=== PATIENT | female | born 1975 | race Caucasian/White ===

== ENCOUNTER 2017-09-23 22:26 | Emergency (ER) | payer MEDICARE, MEDICAID ==
[2017-09-23] MEDS ORDERED: ONDANSETRON HCL IV 4 MG/2 ML VIAL IVP ONE (22:39)
[2017-09-23] MEDS ORDERED: MORPHINE SULFATE 5 MG/ML PFS IVP ONE (22:39)
--- NOTE | 2017-09-23 22:44 | Emergency Department Record ---
History of Present Illness - General Chief Complaint: Abdominal Pain Stated Complaint: ADOMINAL PAIN,CHRONES FLARE UP Time Seen by Provider: 09/23/17 22:33 Source: Patient Mode of Arrival: Ambulatory Limitations: No limitations - History of Present Illness Initial Comments: 41 yo female presents to ED for evaluation of "an exacerbation of my crohn's" disease that worsened today. Patient denies fevers, chills, or recent illness. Patient denies nausea, vomiting, or change in stools. Patient reports that she has pain every day from her crohn's but has not seen a GI specialist in some time. Patient reports taking cholecystyramine and medication for GERD routinely. MD Complaint: Abdominal pain Onset/Timin -: Days(s) Location: Diffuse Radiation: None Migration to: No migration Severity: Severe Quality: Cramping Consistency: Constant Improves With: Nothing Worsens With: Nothing Associated Symptoms: Denies other symptoms - Related Data Patient : No Previous Rx's Medication Instructions Recorded Omeprazole [Prilosec] 40 mg PO DAILY #30 capsule. 11/05/14 Allergies Allergy/AdvReac Type Severity Reaction Status Date / Time Penicillins Allergy Unknown HIVES Unverified 08/12/17 08:24 prochlorperazine edisylate Allergy SWELLING Unverified 08/12/17 08:24 [From Compazine] OF THE TONGUE prochlorperazine maleate Allergy SWELLING Unverified 08/12/17 08:24 [From Compazine] OF THE TONGUE sulfamethoxazole Allergy SWELLING Unverified 08/12/17 08:24 [From Bactrim] OF THE TONGUE trimethoprim [From Bactrim] Allergy SWELLING Unverified 08/12/17 08:24 OF THE TONGUE Review of Systems Constitutional: Denies: Chills, Fever, Malaise, Night sweats Eyes: Denies: Eye discharge, Eye pain ENT: Denies: Congestion, Ear pain, Epistaxis Respiratory: Denies: Cough, Dyspnea Cardiovascular: Denies: Chest pain, Dyspnea on exertion Endocrine: Denies: Fatigue, Heat or cold intolerance Gastrointestinal: Reports: Abdominal pain. Denies: Constipation, Diarrhea, Hematochezia, Nausea, Vomiting Genitourinary: Denies: Incontinence, Retention Musculoskeletal: Denies: Arthralgia, Back pain, Gout, Joint swelling Skin: Denies: Bruising, Change in color Neurological: Denies: Abnormal gait, Confusion, Headache, Seizure Psychiatric: Denies: Anxiety Hematological/Lymphatic: Denies: Anemia, Blood Clots Past Medical History - SOCIAL HISTORY Smoking Status: Current some day smoker - RESPIRATORY Hx Respiratory Disorders: Yes Hx Asthma: Yes - CARDIOVASCULAR Hx Cardio Disorders: No - NEURO Hx Neuro Disorders: Yes Hx Headaches: Yes - GI Hx GI Disorders: Yes Hx Crohn's Disease: Yes - Hx Genitourinary Disorders: No - ENDOCRINE Hx Endocrine Disorders: No - MUSCULOSKELETAL Hx Musculoskeletal Disorders: Yes Hx Back Injury: Yes - PSYCH Hx Psych Problems: Yes Hx Anxiety: Yes Hx Depression: Yes - HEMATOLOGY/ONCOLOGY Hx Hematology/Oncology Disorders: No Family Medical History Hx Cancer: Mother, Grandparents Hx Depression: Mother, Brother/Sister Hx Diabetes: Brother/Sister, Grandparents Physical Exam - General General Appearance: Alert, Oriented x3, Cooperative, Moderate distress Limitations: No limitations - Head Head exam: Atraumatic, Normocephalic, Normal inspection Head exam detail: negative: Abrasion, Contusion, Cortez's sign, General tenderness, Hematoma, Laceration - Eye Eye exam: Normal appearance. negative: Conjunctival injection, Periorbital swelling, Periorbital tenderness, Scleral icterus - ENT Ear exam: negative: Auricular hematoma, Auricular trauma Nasal Exam: negative: Active bleeding, Discharge, Dried blood, Foreign body Mouth exam: negative: Drooling, Laceration, Muffled voice, Tongue elevation - Neck Neck exam: Normal inspection. negative: Meningismus, Tenderness - Respiratory Respiratory exam: Normal lung sounds bilaterally. negative: Rales, Respiratory distress, Rhonchi, Stridor - Cardiovascular Cardiovascular Exam: Regular rate, Normal rhythm, Normal heart sounds - GI/Abdominal GI/Abdominal exam: Soft, Tenderness (Diffuse TTP on examination, no rebound or guarding present). negative: Rebound, Rigid - Rectal Rectal exam: Deferred - exam: Deferred - Extremities Extremities exam: Normal inspection. negative: Calf tenderness, Pedal edema, Tenderness - Back Back exam: Denies: CVA tenderness (R), CVA tenderness (L) - Neurological Neurological exam: Alert, Normal gait, Oriented X3 - Psychiatric Psychiatric exam: Normal affect, Normal mood - Skin Skin exam: Normal color. negative: Abrasion Type of lesion: negative: abrasion Course - Reevaluation(s) Reevaluation #1: 09/23/17 23:06 Labs reviewed, WBC 14.0, labs are otherwise grossly unremarkable for an acute process. Reevaluation #2: 09/24/17 00:48 CT Abdomen and Pelvis: Partial SBO resulting from bowel wall thickening at previous anastamotic junction Mild distal colitis apparent wall thickening Patient was updated on all results, will initiate transfer to [facility] for surgical/GI consultation. Patient agrees with plan as discussed. Medical Decision Making - Lab Data Result diagrams: 09/23/17 22:44 09/23/17 22:44 Disposition Disposition: Transfer Clinical Impression: SBO (small bowel obstruction) Exacerbation of Crohn's disease Qualifiers: Digestive disease complication type: with intestinal obstruction Qualified Code (s): K50.912 - Crohn's disease, unspecified, with intestinal obstruction Disposition: Acute Care Hospital Transfer Transfer To: [facility] Reason For Transfer: Surgical/GI Consultation Accepting Physician: Fill Time Discussed w/Accepting Physician: 00:52 Forms: Patient Portal Access Time of Disposition: 00:52 Quality - Quality Measures Quality Measures: N/A - Blood Pressure Screening Does Patient Have Any of the Following: No Blood Pressure Classification: Normal BP Reading Systolic Measurement: 111 Diastolic Measurement: 63 Screening for High Blood Pressure: < Normal BP, F/U Not Required > [G8783]
[2017-09-23] MEDS ORDERED: 0.9 % SODIUM CHLORIDE 1000ML 1,000 ML IV SCH (22:45)
[2017-09-23 22:50] LABS: BASO % 0.3 % (0-6); EOS % 1.6 % (0-6); GRAN % 74.6 % (47-80); HEMATOCRIT 43.9 % (35.0-47.0); HEMOGLOBIN 15.1 gm/dl (11.6-16.0); LYMPH % 16.4 % (16-45); MEAN CELL VOLUME 90.1 fl (81-97); MEAN CORPUSCULAR HGB CONC 34.4 g/dl (32-36); MEAN PLATELET VOLUME 9.2 fl (7.4-10.4); MONO % 7.1 % (0-9); PLATELET COUNT 257 K/uL (130-400); RED BLOOD COUNT 4.87 M/uL (3.80-5.40); RED CELL DISTRIBUTION WIDTH 13.3 % (11.5-14.5)
[2017-09-23 23:04] LABS: ALB/GLOB RATIO 1.4 (1.1-1.8); ALBUMIN 4.3 g/dL (4.0-5.0); ALKALINE PHOSPHATASE 112 U/L (35-104); ALT/SGPT 19 U/L (<33); AST/SGOT 17 U/L (10.0-35.0); BLOOD UREA NITROGEN 11 mg/dL (6-20); CREATININE 0.5 mg/dL (0.5-0.9); EST GLOMERULAR FILTRATION RATE > 60 mL/min; GLUCOSE,RANDOM 114 mg/dL (74-109); LIPASE 21 U/L (13-60); TOTAL PROTEIN 7.3 g/dL (6.6-8.7)
[2017-09-23 23:10] LABS: URINE APPEARANCE CLEAR; URINE BILIRUBIN NEGATIVE (NEGATIVE); URINE BLOOD TRACE-I (NEGATIVE); URINE COLOR YELLOW; URINE GLUCOSE (UA) NEGATIVE (NEGATIVE); URINE KETONE NEGATIVE (NEGATIVE); URINE LEUKOCYTE ESTERASE NEGATIVE (NEGATIVE); URINE NITRITE NEGATIVE (NEGATIVE); URINE PROTEIN NEGATIVE (NEGATIVE); URINE UROBILINOGEN 0.2 E.U./dL (0.20 - 1.00)
[2017-09-23 23:13] LABS: HCG,QUALITATIVE URINE NEGATIVE (NEGATIVE); URINE BACTERIA NONE SEEN; URINE EPITHELIAL CELLS 0 - 2 (FEW); URINE RBC 0 - 2 (NONE SEEN); URINE WBC 0 - 2 (0-2/hpf)
--- NOTE | 2017-09-25 08:51 | CT SCAN REPORT ---
EXAM: ABDOMEN AND PELVIS CT WITH IV CONTRAST HISTORY: ACUTE UPPER MID ABDOMINAL PAIN, HISTORY OF CROHN'S DISEASE. TECHNIQUE: Contiguous axial images from the lung bases to the symphysis pubis were obtained after the uneventful intravenous administration of 100 ml of Omnipaque 300. Oral contrast was also utilized. Comparison: Abdomen and pelvis CT 11/05/14. FINDINGS: The lung bases are clear. The liver, spleen, kidneys, adrenals, and pancreas are normal. The gallbladder is absent. The visualized loops of small bowel demonstrate mild dilatation in the right lower quadrant with fluid filled small bowel extending to the terminal ileum. This segment of bowel measures 3 cm. There is feculent material in the distal ileum extending to the ileocolic anastomosis. Wall thickening and mucosal hyperenhancement at the anastomosis measuring up to 10 mm in thickness. Status post partial right colon and small bowel resection. The colon is decompressed, not well evaluated. Mild prominence of the wall of the entire colon may reflect nondistention. Mild aortoiliac calcification without aneurysm. The mesenteric vessels are patent. No free intraperitoneal fluid or adenopathy. The uterus is absent. No lytic or blastic osseous lesion. IMPRESSION: 1. LOW GRADE PARTIAL SMALL BOWEL OBSTRUCTION AT THE ILEOCOLIC ANASTOMOSIS LIKELY DUE TO ACTIVE ENTERITIS AT THE ANASTOMOSIS. FINDINGS LIKELY RELATE TO ACTIVE CROHN'S DISEASE. 2. MILD WALL THICKENING OF THE ENTIRE COLON COULD RELATE TO NONDISTENTION. 3. MILD AORTIC CALCIFICATION. JOB NUMBER: [id number] [facility]
== END 2017-09-24 01:08 | disposition short-term general hospital (02) ==
LOC: ER 22:26
DX: K50.912 Crohn's disease, unspecified, with intestinal obstruction (principal)
CPT/HCPCS: 99284 ×2; 96374; 96375; 83690; 85025; 80053; 81001; 81025; 74177; Q9967; J2405; J2270; J7030